=== PATIENT | male | born 1975 | race Caucasian/White ===

== ENCOUNTER 2020-10-26 01:22 | Inpatient (IN) | payer MEDICAID ==
[~2020-10-26] VITALS: Ht 182.9 cm; Wt 72.6 kg
--- NOTE | 2020-10-26 01:34 | NUR ---
Dr. Chaves at bedside for MSE.
[2020-10-26] MEDS ORDERED: IV NORMAL SALINE 1000 ML BAG IV ONE ×2 (01:45→09:45)
[2020-10-26] MEDS ORDERED: PROCHLORPERAZINE EDISYLATE 10 MG/2 ML VIAL IV ONE (01:45)
[2020-10-26] MEDS ORDERED: hydrALAZINE HCL 20 MG/1 ML VIAL IV ONE ×3 (01:45→09:45)
[2020-10-26] MEDS ORDERED: hydrALAZINE HCL 20 MG/1 ML VIAL ONE ×3 (02:05→09:53)
[2020-10-26] MEDS ORDERED: PROCHLORPERAZINE EDISYLATE 10 MG/2 ML VIAL ONE (02:06)
[2020-10-26 02:08] LABS: BASOPHILS # (AUTO) 0.1 K/uL (0.0-8.0); BASOPHILS % (AUTO) 0.6 % (0.0-2.0); EOSINOPHILS # (AUTO) 0.2 K/uL (0.0-0.7); EOSINOPHILS % (AUTO) 2.1 % (0.0-7.0); HEMATOCRIT 40.5 % (36.7-47.1); HEMOGLOBIN 13.4 g/dL (12.5-16.3); LYMPHOCYTES # (AUTO) 2.4 K/uL (20.0-40.0); LYMPHOCYTES % (AUTO) 27.2 % (20.5-51.5); MEAN CORPUSCULAR HEMOGLOBIN 32.1 uug (23.8-33.4); MEAN CORPUSCULAR HGB CONC 33 g/dL (32.5-36.3); MONOCYTES # (AUTO) 0.6 K/uL (2.0-10.0); MONOCYTES % (AUTO) 7.1 % (0.0-11.0); NEUTROPHILS # (AUTO) 5.5 K/uL (1.8-8.9); PLATELET COUNT (AUTO) 406 K/uL (152-348); RED BLOOD CELL COUNT(AUTO) 4.17 MIL/uL (4.06-5.63); WHITE BLOOD COUNT (AUTO) 8.8 K/uL (3.6-10.2)
[2020-10-26 02:14] LABS: POTASSIUM 3.2 mmol/L (3.5-5.1)
[2020-10-26 02:20] LABS: BILIRUBIN,TOTAL 0.4 mg/dL (0.2-1.0); TOTAL PROTEIN, SERUM 7.8 g/dL (6.4-8.2)
[2020-10-26] MEDS ORDERED: hydrALAZINE HCL IV 20 MG in IV NORMAL SALINE 50 ML IV SCH (03:00)
[2020-10-26] MEDS ORDERED: POTASSIUM BICARBONATE/CIT AC 25 MEQ TABLET.EFF PO ONE (03:00)
[2020-10-26] MEDS ORDERED: POTASSIUM BICARBONATE/CIT AC 25 MEQ TABLET.EFF ONE (03:04)
[2020-10-26] MEDS ORDERED: CLONIDINE HCL 0.1 MG TABLET PO ONE (04:00)
[2020-10-26] MEDS ORDERED: LISI20TA PO (04:51)
[2020-10-26] MEDS ORDERED: POTA10CA43 PO (04:51)
[2020-10-26] MEDS ORDERED: PROC-11 PO (04:54)
[2020-10-26] MEDS ORDERED: CLONIDINE HCL 0.1 MG TABLET ONE (06:31)
--- NOTE | 2020-10-26 06:35 | NUR ---
Pt sweating profusely, barely arousable, blood sugar checked 146, patient is alert and oriented x 3. made aware.
--- NOTE | 2020-10-26 07:15 | NUR ---
[facility]
--- NOTE | 2020-10-26 08:52 | NUR ---
Pt sleeping in bed, no distress noted.
[2020-10-26] MEDS ORDERED: CLONIDINE HCL 0.1 MG TABLET PO PRN (13:00)
[2020-10-26] MEDS ORDERED: ACETAMINOPHEN 325 MG TABLET PO PRN (13:00)
[2020-10-26] MEDS ORDERED: ENALAPRILAT DIHYDRATE 1.25 MG/1 ML VIAL IV PRN (13:00)
[2020-10-26] MEDS ORDERED: LORAZEPAM 2 MG/1 ML VIAL IV PRN (13:00)
[2020-10-26] MEDS ORDERED: MORPHINE SULFATE 2 MG/1 ML DISP.SYRIN IV PRN (13:00)
--- NOTE | 2020-10-26 14:00 | NUR ---
Patient potassium 3.2 relayed to MD Vasquez. no new order as of this time.
--- NOTE | 2020-10-26 14:25 | NUR ---
Patient admitted around 2pm sleeping and drowsy noted. not in distress. DX: Hypertension, encephalopathy. Patient unable to answer the questions most of the time. Need clarification and repeat words. Patient refuse skin assessment. Patient IV access left forearm G20, intact and patent. Patient knives in security for safety. no c/o of pain/discomfort as of this time. will continue monitor
[2020-10-26 14:30] VITALS: BP 138/83
[2020-10-26] MEDS: ONDANSETRON 4 MG/2 ML VIAL IV PRN ×2 (14:34→21:19)
--- NOTE | 2020-10-26 15:28 | NUR ---
Patient vomited clear liquid. Zofran IV push PRN given with good effect.
--- NOTE | 2020-10-26 18:37 | NUR ---
Patient continue sleeping in bed. uses urinal for urinating. During interview, Patient verbalize taking drugs outside the hospital. no agitation noted. not in distress. no vomiting episode after zofran PRN given. no c/o of pain/discomfort noted. will continue monitor
[2020-10-26 20:03] VITALS: BP 140/78
--- NOTE | 2020-10-26 21:30 | NUR ---
Received patient in bed. AAOx3; forgetful at times. On RA denies SOB. monitor worker in place, sinus rhythm. Patient c/o nausea, emesis episode x1; Zofran administered per order. N/V relieved from medication. Safety measures in place.
[2020-10-27] VITALS: BP 132/72
[2020-10-27] MEDS: ONDANSETRON 4 MG/2 ML VIAL IV PRN ×2 (02:54→09:20)
[2020-10-27 04:06] VITALS: BP 127/82
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
[2020-10-27] MEDS ORDERED: PANTOPRAZOLE SODIUM 40 MG TABLET.DR PO SCH (07:00)
[2020-10-27] MEDS ORDERED: FOLIC ACID 1 MG TABLET PO SCH (09:00)
[2020-10-27] MEDS ORDERED: THIAMINE HCL 100 MG TABLET PO SCH (09:00)
[2020-10-27] MEDS ORDERED: NICOTINE 7 MG/24HR PATCH TD SCH (09:00)
[2020-10-27] MEDS ORDERED: MULTIVITAMINS,THERAPEUTIC TABLET PO SCH (09:00)
[2020-10-27 09:01] LABS: BILIRUBIN,TOTAL 0.7 mg/dL (0.2-1.0); CREATININE 0.9 mg/dL (0.6-1.3); PHOSPHOROUS 3.3 mg/dL (2.5-4.9); POTASSIUM 3.8 mmol/L (3.5-5.1); TOTAL PROTEIN, SERUM 7.2 g/dL (6.4-8.2)
--- NOTE | 2020-10-27 10:57 | NUR ---
Patient stated he would like to leave AMA, Patient is alert, oriented x4, verbally responsive, no sob, resp even nonlabored, skin warm and dry to touch, ambulatory, BRP, Patient tolerated full liquid diet, complained mild nausea, zofran administered, resolved, patient stated she feels fine, no nausea, no vomiting, explained risks and benefits for leaving AMA, Patient verbalized understanding of it Addendum: 10/27/20 at 1103 by CHRISSY EDGE RN, RN tried to collect the urine, as ordered, however patient refused to give it Addendum: 10/27/20 at 1303 by CHRISSY EDGE RN, RN patient made aware that oncology social work will be here for consultation, patient stated " I do not care" reinforced the importance of getting resources available for him, patient verbalized understanding of it, but same time patient stated " i do not need that information or resources.
[2020-10-27 11:05] LABS: THYROID STIMULATING HORMONE 0.701 mIU/mL (0.358-3.740)
--- NOTE | 2020-10-27 12:00 | NUR ---
patient left AMA
--- NOTE | 2020-10-27 12:23 | NUR ---
Verse Writer note: Verse Writer consultation received for homelessness. This ANIMAL NURSERY WORKER arrived to the telemetry unit to meet with the patient, however was told by lost charge card clerk Ponely that patient left AMA. Unable to complete consultation. No SS interventions needed at this time.
== END 2020-10-27 12:00 | disposition left against medical advice (07) | DRG 812 ==
LOC: ER 01:25 → TELE3 13:30
PROVIDERS: ADMIT Internal Medicine; ATTEND Hospitalist
DX: T50.991A Poisoning by other drugs, medicaments and biological substances, accidental (unintentional), initial encounter (principal); G92 Toxic encephalopathy; Y92.89 Other specified places as the place of occurrence of the external cause; E87.6 Hypokalemia; R11.2 Nausea with vomiting, unspecified; F10.10 Alcohol abuse, uncomplicated; E87.0 Hyperosmolality and hypernatremia; Z59.0 Homelessness; Z20.822 Contact with and (suspected) exposure to COVID-19; F17.210 Nicotine dependence, cigarettes, uncomplicated; D75.89 Other specified diseases of blood and blood-forming organs; F19.10 Other psychoactive substance abuse, uncomplicated
CPT/HCPCS: 36415; 70030-TC; 70450; 71045; 83735; 84100; 84443; 85025; 93005; A9150; G0378; J0360; J0780; J2405; J7030